=== PATIENT | female | born 1945 | race Caucasian/White ===

== ENCOUNTER → 2017-10-02 10:00 | Outpatient (CLI) | payer MEDICARE, OTHER, SELFPAY ==
--- NOTE | 2017-10-02 10:04 | DI.MG.S_ITS ---
BILATERAL DIGITAL SCREENING MAMMOGRAM 3D/2D WITH CAD: 10/02/2017 CLINICAL: Routine screening. Comparison is made to exams dated: 05/18/2016 mammogram, 11/04/2014 mammogram, and 05/29/2013 mammogram - [facility]. The tissue of both breasts is heterogeneously dense. This may lower the sensitivity of mammography. Current study was also evaluated with a Computer Aided Detection (CAD) system. No significant masses, calcifications, or other findings are seen in either breast. There has been no significant interval change. IMPRESSION: NEGATIVE There is no mammographic evidence of malignancy. A 1 year screening mammogram is recommended. This exam was interpreted at Station ID: [id number]. NOTE: For mammograms, a report in lay terms will be sent to the patient. Approximately 15% of breast malignancies will not be visualized mammographically. In the management of a palpable breast mass, a negative mammogram must not discourage biopsy of a clinically suspicious lesion. Electronically Signed By: Moe sanchez/jabari:10/02/2017 10:52:02 letter sent: Normal Exam ACR BI-RADS Category 1: Negative 3341F
== END ==
PROVIDERS: Family Provider Family Medicine; PCP Family Medicine; Visit Provider Family Medicine
DX: Z12.31 Encounter for screening mammogram for malignant neoplasm of breast (principal)
CPT/HCPCS: 77063; 77067

== ENCOUNTER → 2017-10-02 10:22 | Outpatient (CLI) | payer MEDICARE, OTHER, SELFPAY ==
[2017-10-02 12:17] LABS: Add Manual Diff / Slide Review NO; Basophils Percent Auto 0.9 % (0-2); Eosinophils Percent Auto 6.5 % (2-4); Hematocrit 41.5 % (36-46); Hemoglobin 14.2 g/dL (12.0-16.0); Lymphocytes Percent Auto 36.5 % (25-40); Mean Corpuscular HGB Conc 34.3 % (30-36); Mean Corpuscular Volume 87.6 fL (80-100); Monocytes Percent Auto 10.9 % (3-14); Neutrophils Absolute Auto 2400 /uL (3000-5900); Neutrophils Percent Auto 45.2 % (50-75); Platelet Count 275 X10^3/uL (150-400); Red Blood Cell Count 4.73 X10^6/uL (4.0-5.2); Red Cell Distribution Width 13.5 % (11.6-14.8); White Blood Cell Count 5.4 X10^3/uL (4.5-11.0)
[2017-10-02 12:52] LABS: HEMOLYSIS < 15 (0-50); Potassium 4.4 mmol/L (3.4-5.1)
[2017-10-02 12:53] LABS: Alanine Aminotransferase 26 IU/L (9-52); Albumin 4.3 g/dL (3.5-5.0); Albumin Globulin Ratio 1.5 (1.0-2.8); Alkaline Phosphatase 63 U/L (38-126); Aspartate Aminotransferase 20 IU/L (14-36); BUN Creatinine Ratio 18.8 (6-22); Bilirubin Total 0.5 mg/dL (0.2-1.3); Blood Urea Nitrogen 15 mg/dL (7-17); Calcium 9.2 mg/dL (8.4-10.2); Carbon Dioxide 28 mmol/L (22-32); Chloride 104 mmol/L (98-107); Cholesterol 240 mg/dL (140-199); Estimated Glomerular Filt Rate > 60.0 mL/min (>60); Globulin 2.9 g/dL (1.7-4.1); Glucose 100 mg/dL (80-110); HDL Cholesterol 67 mg/dL (40-60); LDL Cholesterol Calculated 157 mg/dL (<100); Sodium 144 mmol/L (137-145); Total Protein 7.2 g/dL (6.3-8.2); Triglycerides 81 mg/dL (35-150)
[2017-10-02 13:16] LABS: TSH w/ Reflex to FT4 2.92 uIU/mL (0.47-4.68)
== END ==
PROVIDERS: Family Provider Family Medicine; PCP Family Medicine; Visit Provider Family Medicine
DX: E03.9 Hypothyroidism, unspecified (principal); E78.5 Hyperlipidemia, unspecified
CPT/HCPCS: 80053; 80061; 84443; 85025

== ENCOUNTER → 2018-10-07 08:49 | Outpatient (CLI) | payer MEDICARE, OTHER, SELFPAY ==
--- NOTE | 2018-10-07 08:51 | DI.MG.S_ITS ---
BILATERAL DIGITAL SCREENING MAMMOGRAM 3D/2D WITH CAD: 10/07/2018 CLINICAL: Routine screening. Comparison is made to exams dated: 10/02/2017 mammogram, 05/18/2016 mammogram, and 11/04/2014 mammogram - [facility]. The tissue of both breasts is heterogeneously dense. This may lower the sensitivity of mammography. Current study was also evaluated with a Computer Aided Detection (CAD) system. There are benign calcifications in both breasts. No significant masses, calcifications, or other findings are seen in either breast. There has been no significant interval change. IMPRESSION: There is no mammographic evidence of malignancy. A 1 year screening mammogram is recommended. This exam was interpreted at Station ID: [id number]. NOTE: For mammograms, a report in lay terms will be sent to the patient. Approximately 15% of breast malignancies will not be visualized mammographically. In the management of a palpable breast mass, a negative mammogram must not discourage biopsy of a clinically suspicious lesion. Electronically Signed By: Dwayne sales/jabari:10/07/2018 12:15:12 letter sent: Normal Exam ACR BI-RADS Category 2: Benign Finding(s) 3342F
[2018-10-07 09:48] LABS: Hemoglobin A1C% w Est Avg Glu 5.4 % (4.0-6.0)
[2018-10-07 10:05] LABS: Blood Urea Nitrogen 22 mg/dL (7-17); Calcium 9.1 mg/dL (8.4-10.2); Carbon Dioxide 28 mmol/L (22-32); Chloride 104 mmol/L (98-107); Estimated Glomerular Filt Rate 54.2 mL/min (>60); Glucose 95 mg/dL (80-110); HEMOLYSIS < 15 (0-50); Potassium 4.1 mmol/L (3.4-5.1); Sodium 141 mmol/L (137-145)
[2018-10-07 10:38] LABS: Free T3, Triiodothyronine Free 2.42 pg/mL (2.77-5.27)
[2018-10-07 15:39] LABS: Vitamin D 25 Hydroxy (D3) 52.2 ng/mL (30.0-100.0)
[2018-10-07 16:47] LABS: Thyroid Stimulating Hormone 1.14 uIU/mL (0.47-4.68)
== END ==
PROVIDERS: PCP Student in an Organized Health Care Education/Training Program; Visit Provider Student in an Organized Health Care Education/Training Program
DX: Z12.31 Encounter for screening mammogram for malignant neoplasm of breast (principal); Z13.820 Encounter for screening for osteoporosis; M85.851 Other specified disorders of bone density and structure, right thigh; Z78.0 Asymptomatic menopausal state; E07.9 Disorder of thyroid, unspecified; E03.9 Hypothyroidism, unspecified; E66.01 Morbid (severe) obesity due to excess calories; E55.9 Vitamin D deficiency, unspecified; Z82.62 Family history of osteoporosis; Z91.89 Other specified personal risk factors, not elsewhere classified; Z79.899 Other long term (current) drug therapy
CPT/HCPCS: 36415; 77063; 77067; 77080; 80048; 82306; 83036; 84439; 84443; 84481

== ENCOUNTER → 2018-10-08 09:48 | Outpatient (CLI) | payer MEDICARE, OTHER, SELFPAY ==
--- NOTE | 2018-10-08 | DI.CT.S_ITS ---
PROCEDURE: CT ABDOMEN PELVIS W CON INDICATIONS: Right upper quadrant pain TECHNIQUE: After the administration of oral and intravenous contrast, 5 mm thick sections acquired from the diaphragms to the symphysis. 5 mm thick coronal and sagittal reformats were performed. For radiation dose reduction, the following was used: automated exposure control, adjustment of mA and/or kV according to patient size. COMPARISON: None. FINDINGS: Image quality: Excellent. ABDOMEN: Lung bases: Lung bases are clear. Heart size is normal. Solid organs: Liver is normal in size and enhancement. Within the liver parenchyma adjacent to the gallbladder fossa there is a dominant water density cyst that measures up to 5.5 x 5.2 cm. Gallbladder appears free of obstruction or inflammation but there are at least 4 posterior layering small gallstones present measuring each approximately 2 mm which are of small size but easily good transit into the cystic duct or common bile duct.. Biliary system is non-dilated. Pancreas enhances normally. Spleen is normal in size and enhancement. No adrenal nodules. Kidneys are normal in size and enhancement, without hydronephrosis. Peritoneum and bowel: Stomach, small bowel, and colon loops are normal in caliber and wall thickness. No free fluid or air. Nodes and vessels: No retroperitoneal or mesenteric adenopathy. Aorta and inferior vena cava are normal in caliber. Miscellaneous: No ventral hernias. PELVIS: Genitourinary: Bladder wall thickness is normal. Miscellaneous: No inguinal hernias or adenopathy. A normal appendix is found at the right lower quadrant. Mild sigmoid diverticulosis is present without acute diverticulitis. Bones: No suspicious bony lesions. No vertebral body compression fractures. IMPRESSION: Gallstones are present that are small in size within the gallbladder lumen, layering dependently, each measuring approximately 2 mm in size. These are of such a small dimension that the easily good transit into the cystic duct or common duct, but at time of scanning a definite ductal calculus is not seen. Depending on the clinical status followup by MR cholangiogram may be warranted. Also, given the multiplicity of these calculi and their small size surgical consultation may be warranted. At this time no acute cholecystitis, biliary distention, or evidence of acute pancreatitis is seen. Normal appendix right lower quadrant. Dictated by: Mike Barnard M.D. on 10/08/2018 at 11:44 Approved by: Mike Barnard M.D. on 10/08/2018 at 11:54
== END ==
PROVIDERS: PCP Student in an Organized Health Care Education/Training Program; Visit Provider Surgery
DX: R10.11 Right upper quadrant pain (principal); K80.20 Calculus of gallbladder without cholecystitis without obstruction; E88.81 Metabolic syndrome and other insulin resistance; J45.909 Unspecified asthma, uncomplicated
CPT/HCPCS: 74177; Q9967

== ENCOUNTER → 2018-11-05 09:58 | Outpatient (CLI) | payer MEDICARE, OTHER, SELFPAY ==
--- NOTE | 2018-11-05 | DI.US.S_ITS ---
PROCEDURE: US ABDOMEN COMPLETE INDICATIONS: UPPER ABD PAIN TECHNIQUE: Real-time scanning was performed of the abdominal and retroperitoneal organs, with image documentation. COMPARISON: None. FINDINGS: Liver: The liver is coarsely echogenic. Liver is mildly enlarged. Subcentimeter presumed left hepatic cyst measuring 8mm. Additional cysts adjacent to the gallbladder fossa measuring 6.1 x 6.2 x 5.2 cm. Gallbladder: Gallbladder contains calculi however no wall thickening, pericholecystic fluid or sonographic Aquino sign Biliary ducts: Intrahepatic bile ducts are non-dilated. Extrahepatic bile duct caliber measures 4-5 mm. Normal is 6-7 mm or less in diameter, or 10 mm or less post-cholecystectomy. Pancreas: Visualized portions of the pancreas are sonographically normal. Spleen: Spleen is normal in size and homogeneous in echotexture. Kidneys: Right kidney measures 10.1 cm long; left kidney measures 10.4 cm long. No hydronephrosis. 4 mm echogenic nonobstructive calculus seen in the left kidney, versus calcification. Bilateral renal cortical thinning/atrophy. No solid masses. Aorta: Visualized aorta is normal in caliber at less than 3 cm. Iliacs: Proximal common iliac arteries are normal in caliber at less than 2.5 cm. IVC: Intrahepatic inferior vena cava is patent. Miscellaneous: No free abdominal fluid. IMPRESSION: Coarse echogenic liver suggesting diffuse hepatocellular disease/fatty infiltration. Please correlate with LFTs. Cholelithiasis, without additional sonographic criteria for acute cholecystitis. Hepatic cysts. Bilateral renal cortical thinning/atrophy. Dictated by: Elie Lynne M.D. on 11/05/2018 at 17:54 Approved by: Elie Lynne M.D. on 11/05/2018 at 17:57
== END ==
PROVIDERS: PCP Student in an Organized Health Care Education/Training Program
DX: R10.11 Right upper quadrant pain (principal); K76.89 Other specified diseases of liver; R16.0 Hepatomegaly, not elsewhere classified; K80.20 Calculus of gallbladder without cholecystitis without obstruction
CPT/HCPCS: 76700; 76705

== ENCOUNTER → 2019-01-01 13:32 | Outpatient (CLI) | payer MEDICARE, OTHER, SELFPAY ==
--- NOTE | 2019-01-01 | DI.US.S_ITS ---
PROCEDURE: US ABDOMEN LIMITED INDICATIONS: CALCULUS OF GALLBLADDER WITHOUT CHOLECYSTITIS TECHNIQUE: Real-time focused scanning was performed of the abdomen, with image documentation. COMPARISON: [facility], US, US ABDOMEN COMPLETE, 11/05/2018, 10:21. [facility], CT, CT ABDOMEN PELVIS W CON, 10/08/2018, 10:46. FINDINGS: Multiple hepatic cysts redemonstrated, largest measuring 6.5 cm are similar to prior examination. Multiple gallstones present. No gallbladder wall thickening or pericholecystic fluid. Negative sonographic Aquino sign. No biliary dilatation. Pancreas not well-visualized. Normal spleen. IMPRESSION: 1. Multiple hepatic cysts redemonstrated, largest measuring up to 6.5 cm similar to prior examination. 2. Cholelithiasis redemonstrated without acute cholecystitis. Dictated by: Jax Fox [facility] Interpreted: Elie Lynne MD on 01/01/2019 at 15:35 Approved by: Elie Lynne M.D. on 01/01/2019 at 17:31
== END ==
PROVIDERS: PCP Student in an Organized Health Care Education/Training Program
DX: K80.20 Calculus of gallbladder without cholecystitis without obstruction (principal); K76.89 Other specified diseases of liver
CPT/HCPCS: 76705

== ENCOUNTER → 2019-01-20 10:35 | Outpatient (CLI) | payer MEDICARE, OTHER, SELFPAY ==
--- NOTE | 2019-01-20 | DI.US.S_ITS ---
PROCEDURE: US RENAL COMPLETE INDICATIONS: CKD, STAGE 3 (MODERATE) TECHNIQUE: Real-time scanning was performed of the kidneys and bladder, with image documentation. COMPARISON: None. FINDINGS: Kidneys: Kidneys are normal in size. Right kidney measures 9.8 cm long; left kidney measures 10.5 cm long. Right renal cortical thickness is 0.8 cm; left renal cortical thickness is 1.2 cm. Renal cortical echotexture is normal. No hydronephrosis or nephrolithiasis. No suspicious solid mass lesions. Bladder: Pre-void bladder volume is 194 mL. Post-void residual is 22 mL. Pre-void images demonstrate no intraluminal masses or stones. On pre-void images, neither ureteral jets are noted with color Doppler interrogation. (Of note, ureteral jets may not be detectable in up to 25% of cases due to insufficient differences in specific gravity between ureteral and bladder urine). Miscellaneous: No free pelvic fluid. IMPRESSION: Asymmetrically smaller right kidney when compared to that on the left, normal bladder function. No hydronephrosis or nephrolithiasis found. Dictated by: Mike Barnard M.D. on 01/20/2019 at 14:30 Approved by: Mike Barnard M.D. on 01/20/2019 at 14:30
== END ==
PROVIDERS: PCP Student in an Organized Health Care Education/Training Program; Visit Provider Internal Medicine Nephrology
DX: N18.3 Chronic kidney disease, stage 3 (moderate) (principal)
CPT/HCPCS: 76770

== ENCOUNTER → 2019-04-06 08:35 | Outpatient (CLI) | payer MEDICARE, OTHER, SELFPAY ==
--- NOTE | 2019-04-06 | DI.NM.S_ITS ---
PROCEDURE: NM HIDA WITH CCK PHARMACEUTICAL: 5.5 mCi Tc-99m mebrofenin IV; 2.0 mcg CCK IV. INDICATIONS: Unspecified abdominal pain TECHNIQUE: Following intravenous administration of Tc-99m mebrofenin, sequential anterior abdominal images were obtained. To evaluate the contractile response of the gallbladder in response to Cholecystokinin (CCK), sincalide (0.02 ?g/kg) was administered by slow intravenous infusion approximately 60 minutes after the administration of the radiopharmaceutical. Sequential imaging was continued for 30 minutes after the start of CCK infusion. Gallbladder ejection fraction was calculated. COMPARISON: None. FINDINGS: Biliary scan: There is normal tracer uptake and excretion by the liver. There is normal visualization of the intrahepatic ducts, common bile duct, and gallbladder. There is normal tracer transit into the duodenum. CCK stimulation: There is diminished contractile response of the gallbladder to CCK infusion. The calculated gallbladder ejection fraction is 14%; normal values are above 35%. It has been shown that any patient abdominal pain after CCK administration is related to the rate of CCK injection, rather than to any underlying gallbladder disease (Clinical Nuclear Medicine 2012; 37: 63-70. Journal of Nuclear Medicine 2014; 55: 1-9). IMPRESSION: Diminished gallbladder ejection fraction which could be secondary to chronic cholecystitis versus biliary dyskinesia. Dictated by: Alva Nugent MD, PhD on 04/06/2019 at 15:55 Approved by: Alva Nugent MD, PhD on 04/06/2019 at 15:56
== END ==
PROVIDERS: PCP Student in an Organized Health Care Education/Training Program; Visit Provider Internal Medicine Gastroenterology
DX: K80.20 Calculus of gallbladder without cholecystitis without obstruction (principal); R10.9 Unspecified abdominal pain
CPT/HCPCS: 78227; A9537; J2805

== ENCOUNTER 2019-05-13 11:55 | Day surgery (SDC) | payer MEDICARE, OTHER, SELFPAY ==
[2019-05-13] MEDS: SODIUM CHLORIDE 0.9% 1,000 ML 84 ML IV (12:38)
[2019-05-13 12:43] VITALS: BP 137/77; PULSE 72; RESP 16; TEMP 36.1; O2SAT 97
[2019-05-13 12:44] VITALS: BMI 38.1
--- NOTE | 2019-05-13 13:39 | PM.HP.1 ---
History of Present Illness History of Present Illness Chief complaint: [id number] Patient History Family & Social History Social History: household members none Tobacco & Substance use: Smoking Status Never smoker alcohol intake frequency holiday/special occasion Substance Use Type does not use Meds Home Medications and Allergies Home Medications Medication Instructions Recorded Confirmed Type albuterol sulfate 90 mcg/actuation 2 puff INHALATION Q6HP PRN #3 inh 09/30/17 05/13/19 Rx aerosol inhaler azelastine 137 mcg (0.1 %) nasal 2 spray INTRANASAL BID #30 ml 09/30/17 05/13/19 Rx spray aerosol calcium carbonate 500 mg calcium 500 mg PO BID #180 cap 09/30/17 05/13/19 Rx (1,250 mg) capsule cholecalciferol (vitamin D3) 125 5,000 unit PO DAILY #90 cap 09/30/17 05/13/19 Rx mcg (5,000 unit) capsule fluticasone propionate 110 2 puff INHALATION BID #12 gram 09/30/17 05/13/19 Rx mcg/actuation HFA aerosol inhaler multivitamin 1 tab PO DAILY #90 tab 09/30/17 05/13/19 Rx olopatadine 0.1 % eye drops 1 drop OPHTHALMIC (EYE) QDAY #5 ml 09/30/17 05/13/19 Rx levalbuterol HCl 1.25 mg/3 mL 1.25 mg INHALATION Q6H PRN #72 ml 10/02/17 05/13/19 Rx solution for nebulization omalizumab 150 mg subcutaneous 150 mg SUBCUT Q4W 12/11/17 05/13/19 History solution montelukast 10 mg tablet 10 mg PO QDAY #90 tab 12/31/17 05/13/19 Rx ascorbic acid (vitamin C) 1,000 mg 1,000 mg PO DAILY tab 11/06/18 05/13/19 History tablet,extended release diphenhydramine HCl 25 mg tablet 25 mg PO DAILY PRN tab 11/06/18 05/13/19 History loratadine 10 mg tablet 10 mg PO DAILY 11/06/18 05/13/19 History Resmed Airsense 10 CPAP #1 ea 02/05/19 History levothyroxine 112 mcg capsule 112 mcg PO DAILY #90 cap 04/09/19 05/13/19 Rx Allergies Allergy/AdvReac Type Severity Reaction Status Date / Time grasses Allergy Intermediate Trouble Uncoded 05/13/19 12:41 breathing. trees Allergy Intermediate Trouble Uncoded 05/13/19 12:41 breathing. Review of Systems Review of Systems ROS: Yes All systems reviewed with the patient and are negative except as otherwise documented Exam Vital Signs (past 8 hours): - 05/13/19 12:43 Temperature 96.9 F L Pulse Rate 72 Respiratory Rate 16 Blood Pressure 137/77 Pulse Oximetry 97 Oxygen Delivery Method Room Air Narrative Exam Narrative: Awake alert and oriented x3, no acute distress, lungs clear to auscultation bilaterally, heart regular rate and rhythm Assessment & Plan Assessment & Plan narrative: Colon cancer screening, for colonoscopy
[2019-05-13] MEDS: MIDAZOLAM 5 MG/5 ML VIAL IV (14:33)
[2019-05-13] MEDS: fentaNYL 250 MCG/5 ML INJ IV (14:34)
--- NOTE | 2019-05-13 14:34 | PM.OP.ENDO ---
Operative Date/Time/Diagnoses Date of procedure: 05/13/19 Procedure & Clinicians Study performed: Colonoscopy Moderate conscious sedation was administered by the endoscopy nurse and supervised by the endoscopist. The following parameters were monitored: Oxygen saturation, heart rate, blood pressure, and response to care. Sedation total: 4 mg midazolam, 100 mcg fentanyl Indications: Colon cancer screening. Last colonoscopy was in 2007 Procedure Notes Procedure in detail: Prior to the procedure, history and physical was performed, and patient medications and allergies were reviewed. Preprocedure nursing history and assessment was reviewed. Patient identification and proposed procedure were verified by the physician and nurse in the procedure room. The physical status of the patient was reassessed after the procedure. After informed consent was obtained including risks, benefits, and alternatives, the scope was passed under direct vision. Throughout the procedure, the patient's blood pressure, pulse, and oxygen saturations were monitored continuously. The colonoscope was introduced through the anus and advanced to the cecum as identified by the appendiceal orifice and ileocecal valve. The patient tolerated the procedure well. Bowel prep was deemed adequate to detect polyps greater than 5 mm. Perianal and digital rectal examinations were unremarkable. Retroflexion in the rectum was unrevealing. Many medium mouth diverticula noted throughout the entire colon. Impression: Pancolonic diverticulosis No specimens obtained Sedation minutes: 19 Specimen(s): none sent Complications: other (EBL 0. No complications) Post-procedure Plan for aftercare: No recommendation for repeat colonoscopy for screening purposes due to age Resume home medications High fiber diet Discharge home with escort
[2019-05-13 14:40] VITALS: BP 127/63; PULSE 75; RESP 13; TEMP 36.4; O2SAT 96
[2019-05-13 14:45] VITALS: BP 123/64; PULSE 70; RESP 11; TEMP 36.4; O2SAT 96
[2019-05-13 14:50] VITALS: BP 146/58; PULSE 67; RESP 13; TEMP 36.4; O2SAT 96
[2019-05-13 15:05] VITALS: BP 119/66; PULSE 84; RESP 14; TEMP 36.2; O2SAT 100
== END 2019-05-13 15:35 | disposition home or self-care (01) ==
PROVIDERS: PCP Student in an Organized Health Care Education/Training Program; Referring Provider Internal Medicine; Visit Provider Internal Medicine
PROC: 0DJD8ZZ Inspection of Lower Intestinal Tract, Via Natural or Artificial Opening Endoscopic (ICD-10-PCS; CPT 45378; principal; 2019-05-13 13:30)
DX: Z12.11 Encounter for screening for malignant neoplasm of colon (principal); K57.30 Diverticulosis of large intestine without perforation or abscess without bleeding
CPT/HCPCS: G0121; J2250; J3010

== ENCOUNTER 2019-07-21 22:32 | Emergency (ER) | payer MEDICARE, OTHER, SELFPAY ==
[2019-07-21 22:42] VITALS: BP 162/72; PULSE 72; RESP 18; TEMP 37; O2SAT 98
[2019-07-21] MEDS: TET,DIPH,PERTUSS(ACELL),VAC/PF 0.5 ML SYRINGE IM (23:06)
--- NOTE | 2019-07-21 23:20 | ED_ITS ---
HPI - Wound/Laceration General Chief Complaint: Wound/Laceration Stated Complaint: LEFT BIG TOE INJURY Time Seen by Provider: 07/21/19 22:43 Source: patient Mode of arrival: Ambulatory Limitations: no limitations History of Present Illness HPI narrative: 74-year-old woman with a history of asthma, seasonal allergies and hypothyroidism presents with a left great toe injury. She was walking [place] around 5:00 a.m. this afternoon, barefoot. She caught her great toe on an extension cord and hyperextended the toenail. It has been bleeding for approximately 4 hours and she is unable to get the bleeding completely controlled. It is tender but not excruciating and she was able to drive herself into the emergency department without difficulty. There is no additional injury to the other toes or remainder of the foot Related Data Home Medications Medication Instructions Recorded Confirmed omalizumab 150 mg subcutaneous 150 mg SUBCUT Q4W 12/11/17 05/13/19 solution ascorbic acid (vitamin C) 1,000 mg 1,000 mg PO DAILY tab 11/06/18 05/13/19 tablet,extended release diphenhydramine HCl 25 mg tablet 25 mg PO DAILY PRN tab 11/06/18 05/13/19 loratadine 10 mg tablet 10 mg PO DAILY 11/06/18 05/13/19 Resmed Airsense 10 CPAP #1 ea 02/05/19 Previous Rx's Medication Instructions Recorded albuterol sulfate 90 mcg/actuation 2 puff INHALATION Q6HP PRN #3 inh 09/30/17 aerosol inhaler azelastine 137 mcg (0.1 %) nasal 2 spray INTRANASAL BID #30 ml 09/30/17 spray aerosol calcium carbonate 500 mg calcium 500 mg PO BID #180 cap 09/30/17 (1,250 mg) capsule cholecalciferol (vitamin D3) 125 5,000 unit PO DAILY #90 cap 09/30/17 mcg (5,000 unit) capsule fluticasone propionate 110 2 puff INHALATION BID #12 gram 09/30/17 mcg/actuation HFA aerosol inhaler multivitamin 1 tab PO DAILY #90 tab 09/30/17 olopatadine 0.1 % eye drops 1 drop OPHTHALMIC (EYE) QDAY #5 ml 09/30/17 levalbuterol HCl 1.25 mg/3 mL 1.25 mg INHALATION Q6H PRN #72 ml 10/02/17 solution for nebulization montelukast 10 mg tablet 10 mg PO QDAY #90 tab 12/31/17 levothyroxine 112 mcg capsule 112 mcg PO DAILY #90 cap 04/09/19 cephalexin [Keflex] 500 mg PO TID #21 cap 07/21/19 Allergies Allergy/AdvReac Type Severity Reaction Status Date / Time grasses Allergy Intermediate Trouble Uncoded 05/13/19 12:41 breathing. trees Allergy Intermediate Trouble Uncoded 05/13/19 12:41 breathing. Review of Systems Review of Systems Narrative: Denies ? fever ? cough ? cold ? chills ? chest pain ? dyspnea ? orthopnea ? wheezing ? abdominal pain ? change to bowel or bladder habits ? nausea vomiting ? skin changes ? rashes Patient History Medical History Abnormal CXR (chest x-ray) (Resolved 1962) Asthma (Chronic 1949) Chicken pox (Resolved 1949) Chronic headaches (Chronic) Depression (Chronic) Eczema (Chronic) Fibroids (Chronic 1993) Fractures (Resolved 2008) Hand joint pain (Chronic) Hayfever (Chronic 1949) Hyperlipidemia (Chronic) Hypothyroidism (Chronic) LAP-BAND surgery status (Chronic) Leg fracture (Resolved 2008) Measles (Resolved 1951) Recurrent sinusitis (Chronic) Respiratory disorder (Chronic) Tinnitus (Chronic) Urinary incontinence (Chronic) Surgical History Anesthesia (Resolved) History of bilateral tubal ligation (Resolved 1969) Hx of laparoscopic gastric banding (Resolved 2007) Family History Father Mental health problem Stroke Grandfather Cancer COPD (chronic obstructive pulmonary disease) Brother History of back surgery Family/Other Brain damage Bicycle rider struck in motor vehicle accident Social History household members: none Smoking Status: Never smoker Smoking Status: Never smoker alcohol intake frequency: holidays/special occasions only Substance Use Type: does not use Exam Narrative Exam Narrative: General: Alert appropriate in no acute distress Respiratory: Able to speak in full sentences, no obvious respiratory distress Skin: No obvious rashes, warm and dry Neurologic: Grossly intact no obvious asymmetries or abnormalities Psych, appropriate insight and affect, cooperative Extremity: Left great toe with bleeding from the proximal nail bed with laceration to the lateral edges of the nail bed. Neurovascularly intact Procedures 1. Digital block Right great toe 5 cc of 1% lidocaine without epinephrine Excellent anesthesia No complications 2. Great toenail removal Nail has been avulsed at the proximal edges but is still attached laterally and distally. 1 cc of lidocaine is injected under the nail itself to gently lifted from the nail bed. Using clamps the nail is removed trying to minimize any damage or injury to the proximal nailbed Nail removed in its entirety, patient tolerated procedure well. No complications 3. Laceration repair The proximal portion of the nail bed has been completely lifted up and there is half a cm laceration on the medial aspect and a 1-1/2 cm laceration on the lateral aspect of the nail bed. Using 3-0 nylon, 1 suture is placed on the medial aspect and 3 are placed on the lateral aspect, again with care taken to do as little damage to the actual nail bed as possible. Excellent hemostasis after sutures are placed. Patient tolerated the procedure well Initial Vital Signs Initial Vital Signs: Vital Signs Temperature 98.6 F 07/21/19 22:42 Pulse Rate 72 07/21/19 22:42 Respiratory Rate 18 07/21/19 22:42 Blood Pressure 162/72 H 07/21/19 22:42 Pulse Oximetry 98 07/21/19 22:42 Course Orders Ordered: Hydrocodone Bitart/Acetaminophen (Vicodin 5/325 Prepack) 1 bottle MISC SEEINSTR ONE Stop: 07/21/19 23:32 Discontinued Medications Bacitracin (Bacitracin) 2 applic TOP NOW ONE Stop: 07/21/19 23:21 Diphtheria/Tetanus/Acell Pertussis (Adacel) 0.5 ml IM .ONCE ONE Stop: 07/21/19 22:57 Last Admin: 07/21/19 23:06 Dose: 0.5 ml Documented by: TIM Lidocaine/Sodium Bicarbonate (Buffered Lidocaine 10 Ml Syr) 10 ml INJ NOW ONE Stop: 07/21/19 22:47 Vital Signs Vital signs: Vital Signs - 8 hr 07/21/19 22:42 Temperature 98.6 F Pulse Rate 72 Respiratory Rate 18 Blood Pressure 162/72 H Pulse Oximetry 98 MDM - Wound/Laceration MDM Narrative Medical decision making narrative: Left great toenail avulsion with laceration of the proximal nail bed. Toenail is removed in its entirety nail bed is re approximated and dressing is placed. Tetanus status is updated today Seven days of Keflex to prevent any infection Vicodin for pain control reviewed complications as well as constipation prevention Discharge Plan Departure Patient Disposition: Home Clinical Impression: Avulsion of nail bed, Avulsion of nail Instructions: DI for Laceration Repair, DI for Nail Avulsion Injury Activity Restrictions/Additional Instructions: Thank you for coming in today You had her tetanus status updated today your next immunization will be appropriate in 10 years I am going to give you a prescription for Keflex, antibiotic. Please take this 3 times a day for 7 days to prevent an infection in the nail bed or your foot Keeping the foot elevated will certainly help with the throbbing. I fully expect that it will be impressively black and blue as well as swollen. Using some sort of dressing over the nail bed itself as well as the sutures will help prevent inadvertent bumps that will be painful Using 400 mg of ibuprofen (2 ajoa-[id number] pills) and 1 Tylenol every 6 hours can be very helpful in controlling pain. I am also going to send you home with some Vicodin. This is a narcotic please use it sparingly for severe pain and recognize that you should not drive while taking narcotics and that it will cause constipation. You will need the sutures out and the wound evaluated in approximately 9-10 days. Please schedule appointment with Dr. Garrison is office on or about July 29. If you feel that things are getting worse please return to the emergency department I hope you heal quickly Prescriptions: New cephalexin [Keflex] 500 mg capsule 500 mg PO TID Qty: 21 RF: 0 No Action cholecalciferol (vitamin D3) 5,000 unit capsule 5,000 unit PO DAILY Qty: 90 RF: 0 multivitamin [Multiple Vitamins] tablet 1 tab PO DAILY Qty: 90 RF: 0 calcium carbonate 500 mg calcium (1,250 mg) capsule 500 mg PO BID Qty: 180 RF: 0 albuterol sulfate [Proventil HFA] 90 mcg/actuation HFA aerosol inhaler 2 puff INHALATION Q6HP PRN (Reason: shortness of breath or wheezing) Qty: 3 RF: 0 azelastine 137 mcg (0.1 %) aerosol,spray 2 spray Intranasal BID Qty: 30 RF: 0 fluticasone propionate [Flovent HFA] 110 mcg/actuation HFA aerosol inhaler 2 puff INHALATION BID Qty: 12 RF: 0 olopatadine [Patanol] 0.1 % drops 1 drop ophthalmic (eye) QDAY Qty: 5 RF: 0 levalbuterol HCl [Xopenex] 1.25 mg/3 mL solution for nebulization 1.25 mg INHALATION Q6H PRN (Reason: shortness of breath or wheezing) Qty: 72 RF: 0 montelukast [Singulair] 10 mg tablet 10 mg PO QDAY Qty: 90 RF: 0 (DME) Resmed Airsense 10 CPAP Qty: 1 RF: 0 levothyroxine 112 mcg capsule 112 mcg PO DAILY Qty: 90 RF: 1 omalizumab 150 mg recon soln 150 mg SUBCUT Q4W RF: 0 loratadine [Allergy Relief (loratadine)] 10 mg tablet 10 mg PO DAILY RF: 0 ascorbic acid (vitamin C) 1,000 mg tablet extended release 1,000 mg PO DAILY RF: 0 diphenhydramine HCl [Benadryl Allergy] 25 mg tablet 25 mg PO DAILY PRN (Reason: Sleep) RF: 0 Referrals: Kenneth Swain MD [Primary Care Provider] -
[2019-07-21] MEDS: HYDROCODONE/ACET 5/325 PREPACK 1 BOTTLE MISC (23:39)
[2019-07-21 23:44] VITALS: BP 159/69; PULSE 76; RESP 16; O2SAT 98
== END 2019-07-21 23:44 | disposition home or self-care (01) ==
PROVIDERS: Emergency Provider Emergency Medicine; PCP Student in an Organized Health Care Education/Training Program
DX: S91.202A Unspecified open wound of left great toe with damage to nail, initial encounter (principal); W22.8XXA Striking against or struck by other objects, initial encounter; Z23 Encounter for immunization
CPT/HCPCS: 11730; 12001; 64450; 90471; 99283; 90715

== ENCOUNTER → 2019-09-11 15:05 | Outpatient (CLI) | payer MEDICARE, OTHER, SELFPAY ==
--- NOTE | 2019-09-11 15:06 | DI.RAD.S_ITS ---
PROCEDURE: XR CHEST 2V INDICATIONS: Cough and sputum production TECHNIQUE: 2 views of the chest were acquired. COMPARISON: [facility], CHEST 2 VIEW, 07/24/2016, 10:41. [facility], CHEST 2 VIEW, 10/17/2015, 12:21. FINDINGS: Surgical changes and devices: None. Lungs and pleura: Lungs are clear. No pleural effusions or pneumothorax. Mediastinum: Mediastinal contours are normal. Heart size is normal. Bones and chest wall: No suspicious bony abnormalities. Soft tissues appear unremarkable. IMPRESSION: Normal for age, source of current cough and sputum production symptoms is not seen. Dictated by: Mike Barnard M.D. on 09/11/2019 at 15:33 Approved by: Mike Barnard M.D. on 09/11/2019 at 15:33
== END ==
PROVIDERS: PCP Student in an Organized Health Care Education/Training Program; Referring Provider Student in an Organized Health Care Education/Training Program; Visit Provider Student in an Organized Health Care Education/Training Program
DX: R05 Cough (principal); R09.3 Abnormal sputum
CPT/HCPCS: 71046

== ENCOUNTER 2019-11-24 12:45 | Emergency (ER) | payer MEDICARE, OTHER, SELFPAY ==
[2019-11-24] VITALS (29 sets, daily range): BP systolic 129–161; BP diastolic 58–114; PULSE 64–90; RESP 12–24; TEMP 36.4; O2SAT 97–100
--- NOTE | 2019-11-24 12:59 | DI.RAD.S_ITS ---
PROCEDURE: XR WRIST LT MIN 3V INDICATIONS: fall, gross deformity right wrist, pain left wrist. TECHNIQUE: 4 views of the wrist were acquired. COMPARISON: None. FINDINGS: Bones: No fractures or dislocations. No suspicious bony lesions. Moderate degenerative change most pronounced at the 1st CMC joint. Bones appear osteopenic. Scaphoid view: Unremarkable Soft tissues: No suspicious soft tissue calcifications. IMPRESSION: No fracture identified. Bones appear osteopenic. If concern for occult fracture recommend follow-up radiographs in 10-14 days. Dictated by: Ion Peralta M.D. on 11/24/2019 at 13:34 Approved by: Ion Peralta M.D. on 11/24/2019 at 13:38
--- NOTE | 2019-11-24 12:59 | DI.RAD.S_ITS ---
PROCEDURE: XR WRIST RT 2V INDICATIONS: fall, gross deformity right wrist, pain left wrist. TECHNIQUE: 2 views of the wrist were acquired. COMPARISON: None. FINDINGS: Bones: Comminuted fracture of the distal radius and ulna. There is dorsal dislocation of the carpus. Background arthritic changes seen at the 1st CMC joint. The scaphoid appears grossly intact. Soft tissues: No suspicious soft tissue calcifications. IMPRESSION: Distal radial and ulnar fracture dislocation as detailed above. Dictated by: Elie Lynne M.D. on 11/24/2019 at 14:16 Approved by: Elie Lynne M.D. on 11/24/2019 at 14:18
[2019-11-24] MEDS: LIDOCAINE 1% W/EPI 10 ML INJ (13:52)
[2019-11-24] MEDS: HYDROMORPHONE 0.5 MG INJ IM (13:52)
--- NOTE | 2019-11-24 14:04 | ED.FALL ---
HPI - Fall <Melyssa Limon SACK DEPARTMENT SUPERVISOR - Last Filed: 11/24/19 20:44> General Chief Complaint: Fall Stated Complaint: broken right arm Time Seen by Provider: 11/24/19 13:15 Source: patient Mode of arrival: Wheelchair History of Present Illness HPI Narrative: 74yo female presents to the ED for right wrist pain and deformity after fall. She states she was walking with a pot, she did not notice that the bottom of the pot and broken off in fullness for, she tripped on the piece of the pot and slight falling forward onto her wrist. Patient states she was able to get up after the fall, did not hit her head, did not lose consciousness. She reports significant right wrist pain as well as mild left wrist pain. She denies any neck pain, fevers, nausea, vomiting, diarrhea, chest pain, shortness of breath, or any other concerns. Related Data Home Medications Medication Instructions Recorded Confirmed omalizumab 150 mg subcutaneous 150 mg SUBCUT Q4W 12/11/17 09/11/19 solution ascorbic acid (vitamin C) 1,000 mg 1,000 mg PO DAILY tab 11/06/18 09/11/19 tablet,extended release diphenhydramine HCl 25 mg tablet 25 mg PO DAILY PRN tab 11/06/18 09/11/19 loratadine 10 mg tablet 10 mg PO DAILY 11/06/18 09/11/19 Resmed Airsense 10 CPAP #1 ea 02/05/19 09/11/19 cetirizine 10 mg tablet 5 mg PO DAILY PRN 10/30/19 fluticasone 500 mcg-salmeterol 50 1 inhalation INHALATION BID 10/30/19 mcg/dose blistr powdr for inhalation ipratropium 0.5 mg-albuterol 3 mg 3 ml INHALATION Q6H PRN 10/30/19 (2.5 mg base)/3 mL nebulization soln Previous Rx's Medication Instructions Recorded albuterol sulfate 90 mcg/actuation 2 puff INHALATION Q6HP PRN #3 inh 09/30/17 aerosol inhaler azelastine 137 mcg (0.1 %) nasal 2 spray INTRANASAL BID #30 ml 09/30/17 spray aerosol calcium carbonate 500 mg calcium 500 mg PO BID #180 cap 09/30/17 (1,250 mg) capsule cholecalciferol (vitamin D3) 125 5,000 unit PO DAILY #90 cap 09/30/17 mcg (5,000 unit) capsule multivitamin 1 tab PO DAILY #90 tab 09/30/17 olopatadine 0.1 % eye drops 1 drop OPHTHALMIC (EYE) QDAY #5 ml 09/30/17 levalbuterol HCl 1.25 mg/3 mL 1.25 mg INHALATION Q6H PRN #72 ml 10/02/17 solution for nebulization montelukast 10 mg tablet 10 mg PO QDAY #90 tab 12/31/17 levothyroxine 112 mcg capsule 112 mcg PO DAILY #90 cap 10/13/19 sertraline 100 mg tablet 100 mg PO DAILY #90 tab 11/05/19 oxycodone-acetaminophen [Percocet] 1 tab PO Q4-6H PRN #20 tab 11/24/19 Allergies Allergy/AdvReac Type Severity Reaction Status Date / Time grasses Allergy Intermediate Trouble Uncoded 11/24/19 12:59 breathing. trees Allergy Intermediate Trouble Uncoded 11/24/19 12:59 breathing. Review of Systems <ABRAHAM Malave - Last Filed: 11/24/19 20:44> Review of Systems Narrative: REVIEW OF SYSTEMS: GENERAL: Denies fever or chills. HENT: No head trauma. EYES: No vision changes. CARDIOVASCULAR: No chest pain. RESPIRATORY: No shortness of breath. GASTROINTESTINAL: No nausea or vomiting. GENITOURINARY: No flank pain. MUSCULOSKELETAL: Complains of right wrist pain, see HPI. INTEGUMENTARY: No rash, lesions, or pruritus. NEURO: No numbness, tingling. PSYCH: No behavior or mood changes. Patient History <ABRAHAM Malave - Last Filed: 11/24/19 20:44> Medical History Abnormal CXR (chest x-ray) (Resolved 1962) Asthma (Chronic 1949) Chicken pox (Resolved 1949) Chronic headaches (Chronic) Depression (Chronic) Eczema (Chronic) Fibroids (Chronic 1993) Fractures (Resolved 2008) Hand joint pain (Chronic) Hayfever (Chronic 1949) Hyperlipidemia (Chronic) Hypothyroidism (Chronic) LAP-BAND surgery status (Chronic) Leg fracture (Resolved 2008) Measles (Resolved 1952) Recurrent sinusitis (Chronic) Respiratory disorder (Chronic) Tinnitus (Chronic) Urinary incontinence (Chronic) Surgical History Anesthesia (Resolved) History of bilateral tubal ligation (Resolved 1969) Hx of laparoscopic gastric banding (Resolved 2007) Family History Father Mental health problem Stroke Grandfather Cancer COPD (chronic obstructive pulmonary disease) Brother History of back surgery Family/Other Brain damage Bicycle rider struck in motor vehicle accident Social History household members: none Smoking Status: Never smoker Smoking Status: Never smoker alcohol intake frequency: holidays/special occasions only Substance Use Type: does not use Exam <ABRAHAM Malave - Last Filed: 11/24/19 20:44> Initial Vital Signs Initial Vital Signs: Vital Signs Temperature 97.6 F 11/24/19 12:56 Pulse Rate 64 11/24/19 12:56 Respiratory Rate 14 11/24/19 12:56 Blood Pressure 129/61 11/24/19 12:56 Pulse Oximetry 100 11/24/19 12:56 PHYSICAL EXAMINATION: GENERAL: Well groomed, alert, and cooperative. Answers questions promptly and appropriately. Vital signs noted. HENT: Normocephalic, atraumatic. EYES: Symmetrical, sclera white, no periorbital swelling. CARDIOVASCULAR: S1 and S2 sounds normal. Regular rate and rhythm, no murmurs, clicks, or bruits. No pedal edema. RESPIRATORY: Normal respiratory rate, trachea midline, airway patent. No stridor, nasal flaring or accessory muscle use. Lungs are clear in all [place]. MUSCULOSKELETAL: Significant deformity noted on right wrist, radial pulse intact. Distal phalanges with CMS intact. Mild left wrist pain, patient has full range of motion of left wrist. Normal gait and coordination. Equal tone and mass bilaterally. No spinal tenderness or deformities. EXTREMITIES: CMS intact. SKIN: Warm, dry, soft, appropriate color for ethnicity. No lesions, rashes, or wounds. NEURO: Alert and Oriented X 3. No sensory deficits. PSYCH: Appropriate affect and mood. <Mehran Beauchamp MD - Last Filed: 11/25/19 13:24> Initial Vital Signs Initial Vital Signs: Vital Signs Temperature 97.6 F 11/24/19 12:56 Pulse Rate 64 11/24/19 12:56 Respiratory Rate 14 11/24/19 12:56 Blood Pressure 129/61 11/24/19 12:56 Pulse Oximetry 100 11/24/19 12:56 Procedures <ABRAHMA Malave - Last Filed: 11/24/19 20:44> Orthopedic Fracture Reduction Fracture #1: Time Out Performed: Yes Side: right Fracture Reduction Location: radius Analgesia: procedural sedation Technique: direct manipulation Post Reduction X-rays Demonstrate: acceptable reduction Post-reduction neuro exam: intact Post-reduction vascular exam: intact Splint Applied: Yes Patient Tolerated Procedure: Well Additional Comments: Procedure completed by Dr. Beauchamp Orthopedic Splinting/Casting Injury #1: Side: right Upper Extremity Injury Location: wrist Upper Extremity Immobilizer: sugar tong splint Post splinting neuro exam: intact Post splinting vascular exam: intact Placed by: Provider <Mehran Beauchamp MD - Last Filed: 11/25/19 13:24> Procedural Sedation Consent signed: Yes Time out performed: Yes Indication: fracture/dislocation reduction ASA Class: II Mallampati Airway Classification: Class II Time of Last PO Intake: 10:30 Preparation: monitoring coordinator applied, pulse oximeter, supplemental O2 applied, reversal agents at bedside, suction/airway equipment at bedside and IV secured IV Propofol dose (mg): 75 Intraservice time/total sedation time (min): 15 ED Sedation Level: Moderate (Concious) Patient Tolerated Procedure: Well Complications: none Additional Comments: Patient tolerated sedation very well. After start of propofol patient completed reduction very well. Awoke 15 minutes after start of propofol. Awake alert oriented x4. No airway compromise. Hemodynamically stable. Please see nurse's notes. Patient maintain good blood pressure and no no no hypoxia or dyspnea. Course <ABRAHAM Malave - Last Filed: 11/24/19 20:44> Course Course Narrative: Dr. Beauchamp attempted a hematoma block, patient reported continued pain with manipulation of wrist. Dr. Beauchamp them perform conscious sedation with propofol 75mg, successful reduction, splint applied, CMS remains intact pre and post splint. Post reduction films with significant improvement. Orders Ordered: Discontinued Medications Hydromorphone HCl (Dilaudid) 0.5 mg IM NOW ONE Stop: 11/24/19 13:43 Last Admin: 11/24/19 13:52 Dose: 0.5 mg Documented by: SCANAPO Lidocaine/Epinephrine (Xylocaine 1% W/Epi) 10 ml INJ INTRA-OP ONE Stop: 11/24/19 13:43 Last Admin: 11/24/19 13:52 Dose: 10 ml Documented by: GLORIA Vital Signs Vital signs: Vital Signs - 8 hr 11/24/19 12:56 11/24/19 15:41 11/24/19 16:00 Temperature 97.6 F Pulse Rate 64 80 90 Respiratory Rate 14 13 12 Blood Pressure 129/61 158/73 H Pulse Oximetry 100 100 100 11/24/19 16:05 11/24/19 16:10 11/24/19 16:15 Temperature Pulse Rate 87 88 88 Respiratory Rate 15 16 15 Blood Pressure Pulse Oximetry 100 100 99 11/24/19 16:20 11/24/19 16:25 11/24/19 16:26 Temperature Pulse Rate 89 86 79 Respiratory Rate 20 15 16 Blood Pressure 161/114 H Pulse Oximetry 99 100 99 11/24/19 16:27 11/24/19 16:30 11/24/19 16:32 Temperature Pulse Rate 89 86 85 Respiratory Rate 14 16 16 Blood Pressure 161/114 H 159/72 H 157/71 H Pulse Oximetry 99 97 97 11/24/19 16:35 11/24/19 16:36 11/24/19 16:37 Temperature Pulse Rate 83 83 83 Respiratory Rate 24 18 16 Blood Pressure 145/58 H 145/58 H Pulse Oximetry 98 97 97 11/24/19 16:40 11/24/19 16:45 11/24/19 16:50 Temperature Pulse Rate 81 79 84 Respiratory Rate 14 20 19 Blood Pressure Pulse Oximetry 99 98 99 11/24/19 16:55 11/24/19 17:00 11/24/19 17:05 Temperature Pulse Rate 82 81 81 Respiratory Rate 17 16 12 Blood Pressure 149/102 H Pulse Oximetry 99 99 100 11/24/19 17:06 11/24/19 17:10 11/24/19 17:15 Temperature Pulse Rate 80 78 81 Respiratory Rate 20 15 15 Blood Pressure 148/70 H Pulse Oximetry 100 100 99 11/24/19 17:20 08/18/20 17:25 11/24/19 17:30 Temperature Pulse Rate 78 80 73 Respiratory Rate 16 14 14 Blood Pressure 146/67 H Pulse Oximetry 99 99 100 11/24/19 17:35 11/24/19 17:40 Temperature Pulse Rate 84 83 Respiratory Rate 14 16 Blood Pressure Pulse Oximetry 99 100 <Mehran Beauchamp MD - Last Filed: 11/25/19 13:24> Orders Ordered: Discontinued Medications Hydromorphone HCl (Dilaudid) 0.5 mg IM NOW ONE Stop: 11/24/19 13:43 Last Admin: 11/24/19 13:52 Dose: 0.5 mg Documented by: SCANAPO Lidocaine/Epinephrine (Xylocaine 1% W/Epi) 10 ml INJ INTRA-OP ONE Stop: 11/24/19 13:43 Last Admin: 11/24/19 13:52 Dose: 10 ml Documented by: SCANAPO Vital Signs Vital signs: Vital Signs - 8 hr 11/24/19 12:56 11/24/19 15:41 11/24/19 16:00 Temperature 97.6 F Pulse Rate 64 80 90 Respiratory Rate 14 13 12 Blood Pressure 129/61 158/73 H Pulse Oximetry 100 100 100 11/24/19 16:05 11/24/19 16:10 11/24/19 16:15 Temperature Pulse Rate 87 88 88 Respiratory Rate 15 16 15 Blood Pressure Pulse Oximetry 100 100 99 11/24/19 16:20 11/24/19 16:25 11/24/19 16:26 Temperature Pulse Rate 89 86 79 Respiratory Rate 20 15 16 Blood Pressure 161/114 H Pulse Oximetry 99 100 99 11/24/19 16:27 11/24/19 16:30 11/24/19 16:32 Temperature Pulse Rate 89 86 85 Respiratory Rate 14 16 16 Blood Pressure 161/114 H 159/72 H 157/71 H Pulse Oximetry 99 97 97 11/24/19 16:35 11/24/19 16:36 11/24/19 16:37 Temperature Pulse Rate 83 83 83 Respiratory Rate 24 18 16 Blood Pressure 145/58 H 145/58 H Pulse Oximetry 98 97 97 11/24/19 16:40 11/24/19 16:45 11/24/19 16:50 Temperature Pulse Rate 81 79 84 Respiratory Rate 14 20 19 Blood Pressure Pulse Oximetry 99 98 99 11/24/19 16:55 11/24/19 17:00 11/24/19 17:05 Temperature Pulse Rate 82 81 81 Respiratory Rate 17 16 12 Blood Pressure 149/102 H Pulse Oximetry 99 99 100 11/24/19 17:06 11/24/19 17:10 11/24/19 17:15 Temperature Pulse Rate 80 78 81 Respiratory Rate 20 15 15 Blood Pressure 148/70 H Pulse Oximetry 100 100 99 11/24/19 17:20 11/24/19 17:25 11/24/19 17:30 Temperature Pulse Rate 78 80 73 Respiratory Rate 16 14 14 Blood Pressure 146/67 H Pulse Oximetry 99 99 100 11/24/19 17:35 11/24/19 17:40 Temperature Pulse Rate 84 83 Respiratory Rate 14 16 Blood Pressure Pulse Oximetry 99 100 MDM - Fall <Melyssa Limon SACK DEPARTMENT SUPERVISOR - Last Filed: 11/24/19 20:44> Medical Records Attestation: I reviewed the patient's medical records. Lab Data Attestation: I reviewed the patient's lab results. Labs: Point of Care Testing Test Results Not applicable Imaging Data L wrist : Radiologist's Impression: [address] [address] XRay Report Signed Patient: Katelyn Sanders LMR#: [id number] : 5Acct:[id number] Age/Sex: 74 / FDate of Service: 11/24/19 Loc: ED Accession Number: [id number] Procedure: XR wrist LT min 3V Ordering Provider: Mehran Beauchamp MD PROCEDURE: XR WRIST LT MIN 3V INDICATIONS: fall, gross deformity right wrist, pain left wrist. TECHNIQUE: 4 views of the wrist were acquired. COMPARISON: None. FINDINGS: Bones: No fractures or dislocations. No suspicious bony lesions. Moderate degenerative change most pronounced at the 1st CMC joint. Bones appear osteopenic. Scaphoid view: Unremarkable Soft tissues: No suspicious soft tissue calcifications. IMPRESSION: No fracture identified. Bones appear osteopenic. If concern for occult fracture recommend follow-up radiographs in 10-14 days. Dictated by: Ion Peralta M.D. on 11/24/2019 at 13:34 Approved by: Ion Peralta M.D. on 11/24/2019 at 13:38 R wrist pre-reduction: Radiologist's Impression: [address] [address] XRay Report Signed Patient: Katelyn Sanders LMR#: [id number] : 5Acct:[id number] Age/Sex: 74 / FDate of Service: 11/24/19 Loc: ED Accession Number: [id number] Procedure: XR wrist RT 2V Ordering Provider: Mehran Beauchamp MD PROCEDURE: XR WRIST RT 2V INDICATIONS: fall, gross deformity right wrist, pain left wrist. TECHNIQUE: 2 views of the wrist were acquired. COMPARISON: None. FINDINGS: Bones: Comminuted fracture of the distal radius and ulna. There is dorsal dislocation of the carpus. Background arthritic changes seen at the 1st CMC joint. The scaphoid appears grossly intact. Soft tissues: No suspicious soft tissue calcifications. IMPRESSION: Distal radial and ulnar fracture dislocation as detailed above. Dictated by: Elie Lynne M.D. on 11/24/2019 at 14:16 Approved by: Elie Lynne M.D. on 11/24/2019 at 14:18 R wrist post-reduction: Radiologist's Impression: [address] [address] XRay Report Signed Patient: Katelyn Sanders LMR#: [id number] : 5Acct:[id number] Age/Sex: 74 / FDate of Service: 11/24/19 Loc: ED Accession Number: [id number] Procedure: XR wrist RT 2V Ordering Provider: Melyssa Limon PROCEDURE: XR WRIST RT 2V INDICATIONS: post reduction TECHNIQUE: 2 views of the wrist were acquired. [facility], 13:17. FINDINGS: Bones: Subluxation at the 1st MCP joint is improved. There is minimal ventral angulation of comminuted, distal radial fracture. Fracture lucency extends to the articular surface. Soft tissues: No suspicious soft tissue calcifications. IMPRESSION: Minimal ventral angulation at distal radial fracture. Dictated by: Tonie Lira M.D. on 11/24/2019 at 17:17 Approved by: Tonie Lira M.D. on 11/24/2019 at 17:19 [facility] Narrative Medical decision making narrative: 74-year-old female with visible obvious deformity to right wrist in confirm dislocation and fractures. Hematoma block was accepted but patient did not report significant pain reduction. Conscious sedation was performed by Dr. Beauchamp with successful fracture reduction. Splint was applied, CMS remained intact pre and post reduction. Patient was given pain medication, she was encouraged to follow up with Ortho as soon as possible. Return precautions given for new or worsening symptoms. Patient agreed to plan of care verbalized understanding <Mehran Beauchamp MD - Last Filed: 11/25/19 13:24> Lab Data Labs: Point of Care Testing Test Results Not applicable Discharge Plan Departure Patient Disposition: Home Clinical Impression: Fracture of wrist Qualifiers: Encounter type: initial encounter Fracture type: closed Laterality: right Qualified Code(s): S62.101A - Fracture of unspecified carpal bone, right wrist, initial encounter for closed fracture Discharge Date/Time: 11/24/19 18:05 Instructions: DI for Wrist Fracture, How to Prevent Falls Activity Restrictions/Additional Instructions: Thank you for entrusting me with your care today. As discussed, you have a wrist fracture which has been realigned. A splint was applied to wrist, please keep this in place at all times. It is very important that you follow-up with orthopedic listed below, call them tomorrow to schedule an appointment. You have been prescribed a narcotic medication, this medication can make you drowsy. Do not drive while using this medication or perform activities that require mental alertness. These medications can also make you constipated, please use [id number] docusate sodium as needed for constipation. Do not take Tylenol with this medication as there is already Tylenol and it. Return emergency department for any new or worsening symptoms such as severe pain, uncontrollable vomiting, color change in your fingers, or other concerns. Prescriptions: New oxycodone-acetaminophen [Percocet] 5-325 mg tablet 1 tab PO Q4-6H PRN (Reason: pain) Qty: 20 RF: 0 No Action cholecalciferol (vitamin D3) 5,000 unit capsule 5,000 unit PO DAILY Qty: 90 RF: 0 multivitamin [Multiple Vitamins] tablet 1 tab PO DAILY Qty: 90 RF: 0 calcium carbonate 500 mg calcium (1,250 mg) capsule 500 mg PO BID Qty: 180 RF: 0 albuterol sulfate [Proventil HFA] 90 mcg/actuation HFA aerosol inhaler 2 puff INHALATION Q6HP PRN (Reason: shortness of breath or wheezing) Qty: 3 RF: 0 azelastine 137 mcg (0.1 %) aerosol,spray 2 spray Intranasal BID Qty: 30 RF: 0 olopatadine [Patanol] 0.1 % drops 1 drop ophthalmic (eye) QDAY Qty: 5 RF: 0 levalbuterol HCl [Xopenex] 1.25 mg/3 mL solution for nebulization 1.25 mg INHALATION Q6H PRN (Reason: shortness of breath or wheezing) Qty: 72 RF: 0 montelukast [Singulair] 10 mg tablet 10 mg PO QDAY Qty: 90 RF: 0 (DME) Resmed Airsense 10 CPAP Qty: 1 RF: 0 levothyroxine 112 mcg capsule 112 mcg PO DAILY Qty: 90 RF: 3 fluticasone propion-salmeterol 500-50 mcg/dose blister with device 1 inhalation INHALATION BID RF: 0 cetirizine 10 mg tablet 5 mg PO DAILY PRNRF: 0 ipratropium-albuterol 0.5 mg-3 mg(2.5 mg base)/3 mL solution for nebulization 3 ml INHALATION Q6H PRN (Reason: wheezing) RF: 0 sertraline 100 mg tablet 100 mg PO DAILY Qty: 90 RF: 1 omalizumab 150 mg recon soln 150 mg SUBCUT Q4W RF: 0 loratadine [Allergy Relief (loratadine)] 10 mg tablet 10 mg PO DAILY RF: 0 ascorbic acid (vitamin C) 1,000 mg tablet extended release 1,000 mg PO DAILY RF: 0 diphenhydramine HCl [Benadryl Allergy] 25 mg tablet 25 mg PO DAILY PRN (Reason: Sleep) RF: 0 Referrals: Kenneth Swain MD [Primary Care Provider] - Dottie Alejandro MD [Physician] - <Mehran Beauchamp MD - Last Filed: 11/25/19 13:24> Cosign ED Attending Cosignature Attestation: I personally evaluated and examined the patient and agree with the assessment, treatment plan, and disposition of the patient as recorded by the APC.
--- NOTE | 2019-11-24 16:36 | DI.RAD.S_ITS ---
PROCEDURE: XR WRIST RT 2V INDICATIONS: post reduction TECHNIQUE: 2 views of the wrist were acquired. COMPARISON: [facility], CR, XR WRIST LT MIN 3V, 11/24/2019, 13:17. FINDINGS: Bones: Subluxation at the 1st MCP joint is improved. There is minimal ventral angulation of comminuted, distal radial fracture. Fracture lucency extends to the articular surface. Soft tissues: No suspicious soft tissue calcifications. IMPRESSION: Minimal ventral angulation at distal radial fracture. Dictated by: Tonie Lira M.D. on 11/24/2019 at 17:17 Approved by: Tonie Lira M.D. on 11/24/2019 at 17:19
[2019-11-24] MEDS: propofoL 200 MG/20 ML VIAL IV (16:43)
== END 2019-11-24 18:05 | disposition home or self-care (01) ==
PROVIDERS: Emergency Provider Nurse Practitioner; PCP Student in an Organized Health Care Education/Training Program
DX: S62.101A Fracture of unspecified carpal bone, right wrist, initial encounter for closed fracture (principal); W19.XXXA Unspecified fall, initial encounter
CPT/HCPCS: 25605; 73100; 73110; 94770; 96372; 99152; 99284; 99285; J1170; J2704

== ENCOUNTER → 2019-11-26 09:06 | Outpatient (CLI) | payer MEDICARE, OTHER, SELFPAY ==
--- NOTE | 2019-11-26 | DI.CT.S_ITS ---
PROCEDURE: CT UE RT WO CON INDICATIONS: Fracture of unspecified carpal bone, right wrist, TECHNIQUE: Noncontrast 1 mm axial sections acquired through the carpal bones, with coronal and sagittal reformats. COMPARISON: [facility], CR, XR WRIST RT 2V, 11/24/2019, 16:39. [facility], CR, XR WRIST RT 2V, 11/24/2019, 13:17. [facility], CR, XR WRIST LT MIN 3V, 11/24/2019, 13:17. FINDINGS: Image quality: Excellent. Bones: Dorsal triquetral fracture noted, minimally displaced.. Severely comminuted distal radial intra-articular fracture. There is loss of the normal volar angulation of the distal radial articular surface and gross articular surface incongruity with step-off measuring 2 mm and diastasis measuring up to 6 mm. There is also slight overriding appearance. Ulnar styloid fracture is present. 1st CMC joint degeneration. Mild diffuse osteopenia. There is diffuse surrounding soft tissue swelling and edema. IMPRESSION: Severely comminuted , slightly overriding intra-articular fracture of the distal radial metaphysis. Loss of the normal volar angulation of the distal radial articular surface. Ulnar styloid fracture. Dorsal triquetral fracture. Associated surrounding soft tissue swelling and edema. Dictated by: Elie Lynne M.D. on 11/26/2019 at 9:33 Approved by: Elie Lynne M.D. on 11/26/2019 at 9:39
== END ==
PROVIDERS: PCP Student in an Organized Health Care Education/Training Program; Referring Provider Student in an Organized Health Care Education/Training Program; Visit Provider Orthopaedic Surgery
DX: S52.571A Other intraarticular fracture of lower end of right radius, initial encounter for closed fracture (principal); S62.111A Displaced fracture of triquetrum [cuneiform] bone, right wrist, initial encounter for closed fracture; S52.611A Displaced fracture of right ulna styloid process, initial encounter for closed fracture; M18.11 Unilateral primary osteoarthritis of first carpometacarpal joint, right hand; X58.XXXA Exposure to other specified factors, initial encounter
CPT/HCPCS: 73200

== ENCOUNTER → 2019-11-28 12:01 | Outpatient (CLI) | payer MEDICARE, OTHER, SELFPAY ==
[2019-11-28 13:13] LABS: Add Manual Diff / Slide Review NO; Basophils Absolute Auto 100 /uL (0-100); Eosinophils Absolute Auto 400 /uL (0-450); Eosinophils Percent Auto 6.8 % (2-4); Hematocrit 38.9 % (36-46); Hemoglobin 13.1 g/dL (12.0-16.0); Lymphocytes Absolute Auto 1800 /uL (1100-4500); Lymphocytes Percent Auto 30.3 % (25-40); Mean Corpuscular HGB Conc 33.8 % (30-36); Mean Corpuscular Hemoglobin 29.5 PG (26-34); Mean Corpuscular Volume 87.4 fL (80-100); Monocytes Absolute Auto 500 /uL (0-900); Monocytes Percent Auto 8.6 % (3-14); Neutrophils Absolute Auto 3200 /uL (1500-7000); Neutrophils Percent Auto 53.3 % (50-75); Platelet Count 304 X10^3/uL (150-400); Red Blood Cell Count 4.44 X10^6/uL (4.0-5.2); Red Cell Distribution Width 13.8 % (11.6-14.8)
[2019-11-29 23:13] LABS: COVID19 Sendout Not Detected (Not Detect)
== END ==
PROVIDERS: Nurse Practitioner; PCP Student in an Organized Health Care Education/Training Program; Referring Provider Orthopaedic Surgery; Visit Provider Orthopaedic Surgery
DX: Z01.818 Encounter for other preprocedural examination (principal); Z01.812 Encounter for preprocedural laboratory examination; Z11.59 Encounter for screening for other viral diseases
CPT/HCPCS: 36415; 85025; 87635; 93005; 93010

== ENCOUNTER 2019-12-01 11:50 | Day surgery (SDC) | payer MEDICARE, OTHER, SELFPAY ==
[2019-11-27 11:47] VITALS: BMI 37.8
[2019-12-01] VITALS (17 sets, daily range): BP systolic 120–147; BP diastolic 48–76; PULSE 69–94; RESP 11–24; TEMP 36.4–37.8; O2SAT 91–99; BMI 38.7
--- NOTE | 2019-12-01 | DI.RAD.S_ITS ---
PROCEDURE: XR WRIST RT 2V INDICATIONS: OR TECHNIQUE: 2 views of the wrist were acquired. COMPARISON: [facility], , XR WRIST RT 2V, 11/24/2019, 16:39. FINDINGS: 2 spot fluoroscopic intraoperative views demonstrating plate and screw fixation of the distal radius. The hardware appears intact. There is expected intraoperative alignment. Dictated by: Elie Lynne M.D. on 12/01/2019 at 16:22 Approved by: Elie Lynne M.D. on 12/01/2019 at 16:22
--- NOTE | 2019-12-01 12:11 | PM.PREOP ---
Pre-operative Note COVID-19 COVID-19 status: Negative Result date/Date tested (Pos, Neg/Pending): 11/28/19 Interval Note History & Physical reviewed/Exam performed by Physician: Yes Changes to H&P: No
--- NOTE | 2019-12-01 12:17 | P.OP_ITS ---
Operative Date/Time/Diagnoses Date of procedure: 12/01/19 Time of procedure: 14:03 Pre-op diagnosis: Intra-articular distal radius and ulna fracture right arm Post-op diagnosis: same Procedure & Clinicians Procedure: ORIF of 3 part distal radius intra-articular fracture Same procedure as scheduled: Yes Indications: 74-year-old female with a comminuted intra-articular distal radius fracture. It is felt she would benefit from ORIF. Risks and benefits of surgery discussed and the appropriate consent obtained. Surgeon: Mehran Myers Click Yes if Unassisted: Yes Anesthesia Type: General Operative Notes Findings: None Closure Type: primary Specimen(s): none sent Prosthetic devices, grafts, tissues, transplants, or devices: [employer] DVR Estimated Blood Loss (mL): 5 Blood products transfused: none Tourniquet time (min): 46 Procedure in detail: The patient was brought to the operating room and intubated on the table. Time-out was performed. Attention was turned towards the well- marked right wrist. Preoperative antibiotics were given. The arm was prepped and draped in the standard sterile fashion. An Esmarch was used to exsanguinate the limb and the tourniquet was inflated. A 8 cm incision was made along the FCR course curving radially distally across the wrist crease. Her soft tissue was torn apart and we just bluntly dissected down to the quadratus. This was elevated off the distal radius. The fracture was exposed and cleaned up with a curette. We then reduced the fracture and confirmed under x-ray. We then took a [employer] volar plate. It was placed against the bone and x-ray was taken to confirm positioning. One screw was placed through the shaft in the variable hole. This was checked under x-ray and tightened down. We then placed distal row pegs and proximal row screws in the distal fragment. We started along the ulnar column and then finished out in the styloid. We were able to grab the dorsal ulnar fragment with our ulnar screws to hold this into place and it was stable. The remainder of the dorsal comminution came back together with ligamentotaxis. We then went back and placed the final shaft screws. The wrist was stressed and shucked under xray to make sure it was stable. Final x-rays were taken. The wound was irrigated. The superficial skin were closed. The patient was placed in a well-padded volar splint as well as a dorsal splint that went up to the MCP joint. She was extubated and brought to recovery with no complications. Complications: none Post-operative Condition: stable Disposition: PACU Plan for aftercare: Outpatient. Follow up in 1.5 weeks
[2019-12-01] MEDS: LACTATED RINGERS 1,000 ML 42 ML IV (12:35)
[2019-12-01] MEDS: CEFAZOLIN 2 GM/100 ML FROZ.PIGGY IV (12:40)
--- NOTE | 2019-12-01 13:05 | SUR.OPER ---
Addendum entered by Jony Dee R.N. 12/01/19 13:06: left arm secured at less than 90 degrees abduction, right arm draped free on black hand table Original Note: Supine on padded OR bed, head on pillow, arms secured on padded arm boards at <90 degrees abduction, legs uncrossed, safety belt at thigh, tape over blanket over lower legs.
[2019-12-01] MEDS: BUPIVACAINE 0.5% W/ EPI (PF) 30 ML VIAL INJ (13:15)
[2019-12-01] MEDS: SODIUM CHLORIDE 0.9% 1,000 ML, GENTAMICIN 80 MG IRR (13:15)
[2019-12-01] MEDS: fentaNYL 100 MCG/2 ML INJ IV ×2 (14:15→14:22)
[2019-12-01] MEDS: OXYCODONE/ACETAMINOPHEN 5/325 TABLET 1 TAB PO ×2 (14:22→15:03)
--- NOTE | 2019-12-01 14:36 | SUR.PHASEI ---
Medicated for patient c/o of 10\10 pain.
--- NOTE | 2019-12-01 16:09 | SUR.PHASEII ---
Pt brought to OPD, pt immediately fell asleep and sats dropped to 82, placed 02 at 4/L and placed on pulse ox. Sats remained higher than 95%. 02 decreased to 2/l sats on 94%. Dr Myers to bedside as pt c/o of 01/15 pain, no new ordered received. Dr. Holt to bedside for low 02and ordered incentive spirometer, pt using it and gets it up to 1500.
--- NOTE | 2019-12-01 17:20 | SUR.PHASEII ---
Unable to wean pt off 02 Dr. Gamez consulted (anesthesia operations leader) Reported pt's condition. She stated pt should stay over night and to call Dr. Myers for orders. Report given to Lynn.
[2019-12-01] MEDS: OXYCODONE IR 10 MG TABLET PO ×2 (18:25→21:34)
[2019-12-01] MEDS: LACTATED RINGERS 1,000 ML 125 ML IV (18:26)
[2019-12-01] MEDS: FLUTICASONE/SALMETEROL 500/50 60 PUFF DISKUS INH (20:53)
[2019-12-01] MEDS: DOCUSATE 100 MG CAPSULE PO (20:58)
[2019-12-01] MEDS: CALCIUM CARBONATE 500 MG TAB PO (20:59)
[2019-12-01] MEDS: HYDROMORPHONE 0.5 MG INJ IV (20:59)
[2019-12-01] MEDS: MONTELUKAST 10 MG TABLET PO (21:29)
[2019-12-02] MEDS: OXYCODONE IR 10 MG TABLET PO ×3 (00:41→08:29)
[2019-12-02] MEDS: LACTATED RINGERS 1,000 ML 125 ML IV (01:40)
[2019-12-02 03:05] VITALS: BP 122/54; PULSE 78; RESP 19; TEMP 36.3; O2SAT 94
[2019-12-02] MEDS: LEVOTHYROXINE 112 MCG TABLET PO (05:25)
[2019-12-02 07:00] VITALS: BP 131/56; PULSE 75; RESP 15; TEMP 36.9; O2SAT 95
--- NOTE | 2019-12-02 07:49 | PM.PNPO.1 ---
Subjective Subjective Date Patient Seen: 12/02/19 Time Patient Seen: 07:49 Interval history: She is doing much better. Pain is about a 5/10. Admitted overnight as she couldn't get her O2 sats up in recovery. has now been fine on room air. Exam Vital Signs (past 8 hours): - 12/02/19 03:05 Temperature 97.4 F L Pulse Rate 78 Respiratory Rate 19 Blood Pressure 122/54 L Pulse Oximetry 94 Oxygen Delivery Method CPAP Oxygen Flow Rate 0 Const Orientation: alert and oriented x3 Extrem Other: right arm - cdi, wiggles fingers/thumb. good cap refill. intact sensation. Assessment & Plan Post-op Postoperative Procedures: Procedures Operation Date: 12/01/19 13:45 Actual Procedures Side Surgeon p ORIF Wrist Fracture Right Mehran Myers MD She's doing well now. dc home. Quality VTE Deep Vein Thrombosis/Pulmonary Embolism Present on Admission: No
[2019-12-02] MEDS: FLUTICASONE/SALMETEROL 500/50 60 PUFF DISKUS INH (08:12)
[2019-12-02 08:13] VITALS: PULSE 70; O2SAT 94
[2019-12-02] MEDS: DOCUSATE 100 MG CAPSULE PO (08:28)
[2019-12-02] MEDS: MULTIVITAMIN 1 TABLET 1 TAB PO (08:28)
[2019-12-02] MEDS: SERTRALINE 50 MG TABLET 100 MG PO (08:29)
[2019-12-02] MEDS: ASCORBIC ACID 500 MG TABLET 1000 MG PO (08:29)
[2019-12-02] MEDS: CALCIUM CARBONATE 500 MG TAB PO (08:29)
[2019-12-02] MEDS: CHOLECALCIFEROL (VITAMIN D3) 5,000 UNIT TABLET 5000 UNIT PO (08:30)
[2019-12-02] MEDS: LORATADINE 10 MG TABLET PO (08:33)
--- NOTE | 2019-12-02 09:15 | PT.IIE ---
Current Diagnoses Other fractures of lower end of right radius, initial encounter for closed fracture (12/01/19) Displaced fracture of right ulna styloid process, initial encounter for closed fracture (12/01/19) Surgery Performed Operation Date: 12/01/19 13:45 Actual Procedures p ORIF Wrist Fracture(Right) - Mehran Myers MD Surgical History (Last Reviewed 11/24/19 @ 14:05 by ABRAHAM Malave) Anesthesia (Resolved) History of bilateral tubal ligation (Resolved 1969) Hx of laparoscopic gastric banding (Resolved 2007) Medical History (Last Updated 11/27/19 @ 12:06 by Preethi Pratt RN) Abnormal CXR (chest x-ray) (Resolved 1962) Asthma (Chronic 1949) Chicken pox (Resolved 1949) Chronic headaches (Chronic) Depression (Chronic) Eczema (Chronic) Fibroids (Chronic 1993) Fractures (Resolved 2008) Hand joint pain (Chronic) Hayfever (Chronic 1949) Hyperlipidemia (Chronic) Hypothyroidism (Chronic) LAP-BAND surgery status (Chronic) Leg fracture (Resolved 2008) Measles (Resolved 1951) LUISA on CPAP (Acute) Recurrent sinusitis (Chronic) Respiratory disorder (Chronic) Tinnitus (Chronic) Urinary incontinence (Chronic) Physical Therapy Inpatient Evaluation/Re-Eval M1 PT/OT-IP Prior Functional Status Start: 12/02/19 11:58 Freq: NEEDED Status: Active Protocol: Document 12/02/19 09:15 AB (Rec: 12[facility]02[facility]19 [email or web address] Medical Review Prior Functional Status Medical History Reviewed Yes Communication able to make needs known Mobility and Gait pt stated that she is independent with all mobilities and ambulation wtihout AD Social History Household Members none Living Arrangements House Number of Floors (Floors) One Floor Number of Stairs To Enter/Railing? no steps to enter Home Environment Standard Height Toilet,Walk in Shower,Tub/Shower,Built-In Shower Seat Home Equipment Hand Held Shower,Grab Bars Near Toilet,Grab Bars In Shower Additional Social History Comment pt's niece will be staying with pt to assist her pt has an adjustable bed M2 PT-IP Current Condition Start: 12/02/19 11:58 Freq: NEEDED Status: Active Protocol: Document 12/02/19 09:15 AB (Rec: 12/02/19 12:08 AB [email or web address]) Physical Therapy Current Condition Current Condition Evaluation Date 12/02/19 Treatment Diagnosis R wrist fx s/p ORIF; difficulty in walking Onset Date 12/01/19 Precautions Brace R volar splint Weight Bearing Status Weight Bearing Status Non-Weight Bearing Allowed Weight Bearing Amount (enter % RUE wrist NWB or #) (%) M3 PT-IP Subjective Start: 12/02/19 11:58 Freq: NEEDED Status: Active Protocol: Document 12/02/19 09:15 AB (Rec: 12/02/19 12:08 [email or web address]) Subjective Physical Therapy Visit Type Type Initial Evaluation Visit Start Time 09:15 Visit Stop Time 09:37 Total Visit Minutes 22 Number of MANAGER PHOTOGRAPHY Visits 0 Physical Therapy Visit Comments Patient Comments pt is agreeable to do PT Therapy Pain Assessment Pain When Pain Assessed At Rest Pain Present Pain Present Pain Reported Location r wrist Intensity 8 Scale Used Numeric (0 - 10) Pain Management Techniques Elevation,Re-positioning, Timing of Activity with Medications M4 PT-IP Mobility and Gait Start: 12/02/19 11:58 Freq: NEEDED Status: Active Protocol: Document 12/02/19 09:15 AB (Rec: 12/02/19 12:08 [email or web address]) PT-Bed Mobility Assessment Supine to Sit Supine to Sit Standby Assistance Sit to Supine Sit to Supine Standby Assistance Scooting Scooting to Edge of Bed Standby Assistance PT-Transfer Assessment Sit to and From Stand Sit to and from Stand Standby Assistance Equipment Transfer Assistive Device Gait Belt Orthotic/Prosthetic Devices or Brace: Yes Comments Mobility Comments pt sitting on EOB and agreed to do PT. niece in room with pt. pt completed supine <>sit SBA. completed sit to stand SBA and ambulated in room without AD SBA ~ 40 ft. pt educated on precautions and UE positioning . pt prefers to just sit on EOB after PT. informed [facility] that pt is waiting for d/c Gait Assessment Gait Gait Assistance Required: Standby Assistance Distance (Feet) 40 Able to Maintain Weight Bearing Status Yes During Gait Assistive Devices Assistive Device None,Gait Belt Orthotic/Prosthetic Devices or Brace: Yes Gait Deviations General Gait Pattern Antalgic,Lateral Trunk Lean Factors Limiting Gait Function Factors Limiting Gait Function Decreased Strength,Pain,Poor Balance Comments Gait Comments SBA with ambulation without AD . presents with antalgic gait with increase R lateral trunk lean PT-Balance Assessment Sitting Balance and Reactions Static Sitting Balance Ability Normal Dynamic Sitting Balance Ability Normal Standing Balance and Reactions Static Standing Balance Ability Good Dynamic Standing Balance Ability Good Device Used without AD M5 PT-IP Objective Assessments Start: 12/02/19 11:58 Freq: NEEDED Status: Active Protocol: Document 12/02/19 09:15 AB (Rec: 12/02/19 12:08 AB [email or web address]) Orientation Orientation/Cognition Level of Alertness Alert Orientation Name,Age,Birthday,Month,Date, Year,Day of Week,Place, Situation Language Function Ability No Deficits Noted Safety Awareness Understands Safety Issues Memory Description No Deficits Noted Gross Range of Motion Lower Extremity ROM Assessment Within Functional Limits Strength Lower Extremity Strength Assessment Within Functional Limits Coordination Assessment Gross Coordination Gross Coordination WNL Muscle Tone Muscle Tone WNL Yes M6 PT-IP Treatment Start: 12/02/19 11:58 Freq: NEEDED Status: Active Protocol: Document 12/02/19 09:15 AB (Rec: 12/02/19 12:08 AB [email or web address]) Physical Therapy Treatment Education Education Provided Precautions,Weight Bearing Status,Safety M7 PT-IP Assessment and Plan Start: 12/02/19 11:58 Freq: NEEDED Status: Active Protocol: Document 12/02/19 09:15 AB (Rec: 12/02/19 12:08 AB [email or web address]) PT Summary Assessment and Plan Potential Rehabilitation Potential Good Status of Condition at Evaluation Stable Summary Impairments Pain,ROM,Strength,Balance,Bed Mobility,Transfers,Gait, Activity Tolerance Progress Towards Goals Safe For Discharge Assessment Summary pt requiring SBA with mobility and plans to go home today with her niece to assist her. pt may go home when stable. Goals Bed Mobility Goal Independent Transfer Goal Independent Gait Goal Independent Gait Distance 250 Days to Meet Goals 3 Frequency of Treatment Frequency Of Treatment Once a Day Treatment Plan Physical Therapy Treatment Plan Bed Mobility Training,Transfer Training,Gait Training, Therapeutic Exercise,Balance Retraining,Post Op Education, Discharge Planning,Hot or Cold Pack,Neuromuscular Re-ed, Coordination Retraining,Manual Therapy Recommendations To Nursing Amount of Assist Needed Standby Assistance Discharge Recommendations PT Discharge Recommendations Home with Assistance, Outpatient PT Transportation Needs at Discharge Private Vehicle
--- NOTE | 2019-12-02 10:22 | PC.NURSE ---
Day shift discharge note: Patient discharge home per Dr. Myers order. Discharge instructions given to patient and niece, discussed importance of F/U with Ortho in 1.5 weeks, activity, and s/sx of infections. Verbalized understanding of instructions. Home via private vehicle. RX already filled.
--- NOTE | 2019-12-02 11:51 | CM.DANOTE ---
DCP assessment: EMR reviewed: Patient is a 74 yr old female who was admitted for Rt arm Fracture. Patient PCP is Dr. Swain. CM?RN met with patient at the bedside and explained role. patient was alert and oriented at time of visit. Patient currently lives alone in a single level home. Patients valdo Alfaro is here from [place] to take care of patient and transport her home at D/C. patient is independent with all ADLs and drives at [place]. Patients plan is to D/C home today with her niece. I: Medicare and for life. Plan: Patients plan is to D/C home today with her niece. No needs at this time. Lily Kulkarni RN Discharge Planning/Care Management CM Discharge Assessment Start: 12/02/19 11:49 Freq: Status: Active Protocol: Document 12/02/19 08:30 HS (Rec: 12/02/19 11:51 [id number]) Discharge Planning Assessment Assigned Cook Pie Lily Kulkarni RN DPOA/Assigned Designee Name Anel Sanders Contact Information [phone] Advance Directives? Yes History Provided By Patient Has Patient been admitted in last 30 No days? Prior Living Arrangements House Household Members family,friend(s),none Type of transporation used prior to Drives own vehicle admit Independent with ADL's Yes Is patient alert and oriented? Yes Caregiver for Another No DME Already Rented / Owned Cane Barriers to Discharge No Discharge Plan Home Transportation Arrangement Patients Valdo Alfaro is here to help patient at D/C and will drive her home. Referrals Initiated None needed Whiteboard Updated in Patient Room with Yes name and ext. # of Cook Pie Review Status In Process Next Review Type Continued Stay Review Pre-Anesthesia Assessment Start: 11/27/19 11:47 Freq: Status: Complete Protocol: Document 11/27/19 11:47 CAB (Rec: 11/27/19 12:09 CAB [id number]) Pre-Anesthesia Assessment Patient Information Reviewed Via Chart Review Comment COVID screen @ 11/28/19 Primary Care Provider Kenneth Swain Seen Specialist in Last 12 Months Yes Specialist Seen Emergency,Orthopedist Primary Language Azeri Director Of Patient Care Required No Height 158.75 cm Weight 95.254 kg Body Mass Index (BMI) 37.8 Barriers to Learning None Hx Anesthesia Reactions No Hx Family Anesthesia Reaction No Hx Malignant Hyperthermia No Hx Blood Transfusion Reaction No Anesthesia Review Requested No [place] Technician No alcohol intake current alcohol intake frequency holidays/special occasions only Smoking Status Never smoker Substance Use Type does not use Pain Present Pain Reported Musculoskeletal Symptoms Deformity,Joint Pain,Joint Swelling,Limited Range of Motion History of Falling (Recent or History of Yes ) Patient is completely paralyzed or No completely immobile Is patient on oxygen? No Hx Sleep Apnea Yes CPAP/BIPAP use prescribed and used routinely Currently Taking a Beta Cristina No Anti-Coagulant Therapy No Has a Natural Resources Specialist No Cardiac Testing No Hx Pacemaker/ICD No Pacemaker Rep Required? No Cardiac Clearance Received Not Applicable Urinary Catheter Present No Hx Urinary Self Catheterization No Diabetes No Patient No Lactating No Presence of External or Internal Medical Yes: RLE metal kilo, Lap band Devices Have you had any close contact with Unknown someone diagnosed with COVID-19? Marital Status / Lives With none Patient Discharge Plan Description Return Home Advance Directives? Yes Power of Manager Express Yes Power of Manager Express Name anel sanders- son
== END 2019-12-02 10:30 | disposition home or self-care (01) ==
LOC: OR 15:28 → AC 18:02
PROVIDERS: PCP Student in an Organized Health Care Education/Training Program; Referring Provider Student in an Organized Health Care Education/Training Program; Visit Provider Orthopaedic Surgery
PROC: (CPT 25609; principal; 2019-12-01 13:45)
DX: S52.591A Other fractures of lower end of right radius, initial encounter for closed fracture (principal); S52.611A Displaced fracture of right ulna styloid process, initial encounter for closed fracture; W01.198A Fall on same level from slipping, tripping and stumbling with subsequent striking against other object, initial encounter; G47.30 Sleep apnea, unspecified; F32.9 Major depressive disorder, single episode, unspecified; J45.909 Unspecified asthma, uncomplicated
CPT/HCPCS: 25609; 73100; 76000; 94640; 97161; A9270; J0690; J1100; J1170; J2250; J2405; J2704; J3010

== ENCOUNTER → 2020-01-09 15:02 | Outpatient (CLI) | payer MEDICARE, OTHER, SELFPAY ==
[2019-12-01 18:02] VITALS: BMI 38.7
--- NOTE | 2020-01-09 15:05 | DI.MG.S_ITS ---
BILATERAL DIGITAL SCREENING MAMMOGRAM 3D/2D WITH CAD: 01/09/2020 CLINICAL: Routine screening. Comparison is made to exams dated: 10/07/2018 mammogram, 10/02/2017 mammogram, 05/18/2016 mammogram, and 11/04/2014 mammogram - [facility]. There are scattered fibroglandular elements in both breasts. Current study was also evaluated with a Computer Aided Detection (CAD) system. There are benign calcifications in both breasts. No significant masses, calcifications, or other findings are seen in either breast. There has been no significant interval change. IMPRESSION: BENIGN There is no mammographic evidence of malignancy. A 1 year screening mammogram is recommended. This exam was interpreted at Station ID: [id number]. NOTE: For mammograms, a report in lay terms will be sent to the patient. Approximately 15% of breast malignancies will not be visualized mammographically. In the management of a palpable breast mass, a negative mammogram must not discourage biopsy of a clinically suspicious lesion. Electronically Signed By: Dwayne sales/jabari:01/11/2020 10:00:45 letter sent: Normal Exam ACR BI-RADS Category 2: Benign Finding(s) [id number]
== END ==
PROVIDERS: PCP Student in an Organized Health Care Education/Training Program; Referring Provider Student in an Organized Health Care Education/Training Program; Visit Provider Student in an Organized Health Care Education/Training Program
DX: Z12.31 Encounter for screening mammogram for malignant neoplasm of breast (principal)
CPT/HCPCS: 77063; 77067